=== PATIENT | female | born 1955 | race Caucasian/White ===

== ENCOUNTER 2023-06-03 16:19 | Inpatient (IN) | payer MEDICARE, OTHER ==
[~2023-06-03] VITALS: Ht 170.2 cm; Wt 91.2 kg
[~2023-06-03 16:19] MED LIST: ASPI-1169 PO; DULO60CA45 PO; INSU100V28 IJ; ROSU20TA2 PO; SITA100T PO
[2023-06-03] MEDS ORDERED: IV NS 0.9% 500 ML BAG IV ONE (16:30)
[2023-06-03] MEDS ORDERED: LEVO100T9 PO (17:04)
[2023-06-03] MEDS ORDERED: FURO-144 PO (17:04)
[2023-06-03] MEDS ORDERED: BLOO-668 IN (17:04)
[2023-06-03] MEDS ORDERED: FERR325T23 PO (17:04)
[2023-06-03] MEDS ORDERED: SEVE800T8 PO (17:04)
[2023-06-03] MEDS ORDERED: ATOR20TA PO (17:04)
[2023-06-03] MEDS ORDERED: INSU100I30 SQ (17:04)
[2023-06-03] MEDS ORDERED: CARV25TA2 PO (17:04)
[2023-06-03] MEDS ORDERED: NIFE30TA91 PO (17:04)
[2023-06-03 17:33] LABS: BASOPHILS % (AUTO) 1.2 % (0.0-2.0); EOSINOPHILS # (AUTO) 0.1 K/uL (0.0-0.7); EOSINOPHILS % (AUTO) 1.7 % (0.0-6.0); HEMATOCRIT 34 % (33-45); HEMOGLOBIN 10.4 g/dL (11.5-14.8); LYMPHOCYTES # (AUTO) 1.1 K/uL (0.8-4.8); LYMPHOCYTES % (AUTO) 30.7 % (20.0-44.0); MEAN CORPUSCULAR HEMOGLOBIN 28 PG (26.0-33.0); MEAN CORPUSCULAR HGB CONC 30 g/dl (31.0-36.0); MEAN CORPUSCULAR VOLUME 94 fL (82-100); MONOCYTES # (AUTO) 0.3 K/uL (0.1-1.30); MONOCYTES % (AUTO) 8.5 % (2.0-12.0); NEUTROPHILS % (AUTO) 57.9 % (43.0-81.0); PLATELET COUNT (AUTO) 137 K/uL (150-450); RED BLOOD CELL COUNT(AUTO) 3.67 MIL/uL (4.0-5.2); RED CELL DISTRIBUTION WIDTH 17.5 % (11.5-15.0); WHITE BLOOD COUNT (AUTO) 3.4 K/uL (4.3-11.0)
[2023-06-03 17:40] LABS: CALCIUM, SERUM 6.4 mg/dL (8.5-10.1); POTASSIUM 5.1 mmol/L (3.5-5.1)
[2023-06-03 17:47] LABS: BILIRUBIN,DIRECT 0.1 mg/dL (0.0-0.2); BILIRUBIN,TOTAL 0.4 mg/dL (0.2-1.0); TOTAL PROTEIN, SERUM 6.5 g/dL (6.4-8.2)
[2023-06-03 17:49] LABS: CREATININE 15.9 mg/dL (0.6-1.3)
[2023-06-03] MEDS ORDERED: DICYCLOMINE HCL INJ 20 MG/2 ML AMPUL IM ONE ×2 (18:00→18:13)
[2023-06-03 19:13] LABS: ANISOCYTOSIS 1+; BAND % (MANUAL) 1 % (0.0-5.0); EOSINOPHILS % (MANUAL) 4 % (0-4); LYMPHOCYTES % (MANUAL) 27 % (16-48); MONOCYTES % (MANUAL) 4 % (0-11.0); NEUTROPHILS % (MANUAL) 64 (42-76); PLATELET ESTIMATE DECREASED
[2023-06-03 20:41] LABS: APPEARANCE,URINE CLOUDY (CLEAR); BILIRUBIN,URINE NEGATIVE (NEGATIVE); BLOOD, URINE 2+ Ery/uL (NEGATIVE); COLOR,URINE YELLOW (YELLOW); KETONES,URINE TRACE mg/dL (NEGATIVE); LEUKOCYTE ESTERASE ,URINE 3+ (NEGATIVE); NITRITE, URINE NEGATIVE (NEGATIVE); PH,URINE 5.5 (5.0-8.0); PROTEIN,URINE 2+ mg/dl (NEGATIVE); UGLUCOSE NEGATIVE (NEGATIVE); UROBILINOGEN,URINE 0.2 EU/dL (0.2)
[2023-06-03 20:45] LABS: ADD URINE CULTURE YES; BACTERIA,URINE 3+ /HPF (None Seen); RBC,URINE 21-50 /HPF (0-2); WBC,URINE 51-80 /HPF (0-3)
[2023-06-03] MEDS ORDERED: MAG HYDROX/AL HYDROX/SIMETH 30 ML UDC PO PRN (22:00)
[2023-06-03] MEDS ORDERED: ACETAMINOPHEN 325 MG TABLET PO PRN (22:00)
[2023-06-03] MEDS ORDERED: MAGNESIUM HYDROXIDE 30 ML UDC PO PRN (22:00)
[2023-06-03] MEDS ORDERED: Calcium Gluconate 1GM/10ML 4.65 MEQ in IV NS 0.9% 100 ML IV ONE (22:00)
[2023-06-03] MEDS ORDERED: ONDANSETRON HCL/PF 4 MG/2 ML VIAL IVP PRN (22:00)
[2023-06-03] MEDS ORDERED: ZOLPIDEM TARTRATE 5 MG TABLET PO PRN (22:00)
[2023-06-03] MEDS ORDERED: Z GUARD REMEDY 4 OZ OINT TP PRN (22:00)
[2023-06-03] MEDS ORDERED: PIPERCILLIN/TAZOBACTAM 2.25GM/D5W 50MLPB IV ONE (22:45)
[2023-06-03] MEDS: ZOSYN IVPB 2.25 G in IV D5W 50ml IV ONE ×2 (22:53→23:11)
[2023-06-04] VITALS: BP 122/74; TEMP 97.7; O2SAT 99
[2023-06-04] MEDS ORDERED: KETOROLAC TROMETHAMINE INJ 30 MG/ML VIAL IV PRN (02:00)
[2023-06-04] MEDS ORDERED: DEXTROSE 50%-WATER 50 ML DISP.SYRIN IV PRN (03:30)
[2023-06-04 04:00] VITALS: BP 122/76; TEMP 98.1; O2SAT 98
[2023-06-04] MEDS ORDERED: ZOSYN IVPB 2.25 G in IV D5W 50ml IV SCH (06:00)
[2023-06-04] MEDS ORDERED: BLOOD SUGAR DIAGNOSTIC 1 EACH STRIP IN SCH (06:00)
[2023-06-04] MEDS: BLOOD SUGAR DIAGNOSTIC 1 EACH STRIP IN SCH ×3 (06:05→17:00)
[2023-06-04] MEDS: INSULIN REGULAR, HUMAN 100 UNIT/ML 3 ML VIAL SQ PRN ×2 (06:07→11:35)
[2023-06-04 06:57] LABS: BASOPHILS % (AUTO) 0.3 % (0.0-2.0); EOSINOPHILS # (AUTO) 0.1 K/uL (0.0-0.7); EOSINOPHILS % (AUTO) 1.5 % (0.0-6.0); HEMATOCRIT 33 % (33-45); HEMOGLOBIN 10.3 g/dL (11.5-14.8); LYMPHOCYTES % (AUTO) 29.7 % (20.0-44.0); MEAN CORPUSCULAR HEMOGLOBIN 29 PG (26.0-33.0); MEAN CORPUSCULAR HGB CONC 32 g/dl (31.0-36.0); MEAN CORPUSCULAR VOLUME 92 fL (82-100); MONOCYTES # (AUTO) 0.3 K/uL (0.1-1.30); MONOCYTES % (AUTO) 7.8 % (2.0-12.0); NEUTROPHILS # (AUTO) 2.1 K/uL (1.8-8.9); NEUTROPHILS % (AUTO) 60.7 % (43.0-81.0); PLATELET COUNT (AUTO) 119 K/uL (150-450); RED BLOOD CELL COUNT(AUTO) 3.54 MIL/uL (4.0-5.2); RED CELL DISTRIBUTION WIDTH 17.2 % (11.5-15.0); WHITE BLOOD COUNT (AUTO) 3.5 K/uL (4.3-11.0)
[2023-06-04 07:22] LABS: CALCIUM, SERUM 6.2 mg/dL (8.5-10.1); MAGNESIUM 2.5 mg/dL (1.8-2.4); PHOSPHORUS 7.8 mg/dL (2.5-4.9); POTASSIUM 4.9 mmol/L (3.5-5.1)
[2023-06-04 07:25] LABS: CREATININE 15.9 mg/dL (0.6-1.3)
[2023-06-04] MEDS: LEVOTHYROXINE SODIUM 100 MCG TABLET PO SCH (07:30)
[2023-06-04] MEDS: PANTOPRAZOLE 40 MG TABLET.DR PO SCH (07:30)
[2023-06-04 08:00] VITALS: BP 106/46; TEMP 97.6; O2SAT 99
[2023-06-04] MEDS: SEVELAMER CARBONATE 800 MG TABLET PO SCH ×3 (08:00→17:01)
[2023-06-04] MEDS: INSULIN GLARGINE, 100 UNIT/ML CARTRIDGE SQ SCH ×2 (08:58→21:43)
[2023-06-04] MEDS: NIFEdipine XL (30MG) 30 MG TAB PO SCH (09:00)
[2023-06-04] MEDS: FERROUS SULFATE (325 MG) 325 MG/TAB TABLET PO SCH ×2 (09:00→16:06)
[2023-06-04] MEDS: CARVEDILOL 12.5 MG TABLET PO SCH ×3 (09:00→16:06)
[2023-06-04] MEDS: HEPARIN SODIUM, PORCINE 5000 UNITS/1 ML VIAL SQ SCH ×2 (09:51→21:04)
[2023-06-04 12:00] VITALS: BP 126/51; TEMP 97.6; O2SAT 99
[2023-06-04] MEDS ORDERED: TRAMADOL HCL 50 MG TABLET PO PRN (12:30)
[2023-06-04] MEDS: PIPERACILLIN /TAZOBACTAM 2.25 G in IV D5W 50 ML IV SCH ×2 (12:36→21:02)
[2023-06-04] MEDS ORDERED: ACIDOPHILUS/BULGARICUS 1 EACH GRAN.PACK PO SCH (13:00)
[2023-06-04] MEDS: ACIDOPHILUS/BULGARICUS 1 EACH TAB.CHEW PO SCH ×2 (15:23→16:06)
[2023-06-04 16:00] VITALS: BP 103/80; TEMP 97.8; O2SAT 98
[2023-06-04] MEDS ORDERED: ACIDOPHILUS/BULGARICUS 1 EACH TAB.CHEW PO SCH (17:00)
[2023-06-04] MEDS ORDERED: HEPARIN SODIUM, PORCINE 5000 UNITS/1 ML VIAL SQ SCH (17:00)
[2023-06-04] MEDS ORDERED: HYDROCORTISONE ACETATE 25 MG/SUPP.RECT SUPP.RECT RC PRN (19:00)
[2023-06-04 20:00] VITALS: BP 108/60; TEMP 98.8; O2SAT 96
[2023-06-04] MEDS: ATORVASTATIN 10 MG TABLET PO SCH (21:48)
[2023-06-05] VITALS: BP 112/51; TEMP 99; O2SAT 96
[2023-06-05] MEDS: INSULIN REGULAR, HUMAN 100 UNIT/ML 3 ML VIAL SQ PRN ×3 (00:12→11:12)
[2023-06-05] MEDS: BLOOD SUGAR DIAGNOSTIC 1 EACH STRIP IN SCH ×4 (00:13→17:37)
[2023-06-05] MEDS ORDERED: Calcium Gluconate 0.465 MEQ/ML VIAL IV ONE (00:47)
[2023-06-05 04:00] VITALS: BP 123/51; TEMP 99; O2SAT 96
[2023-06-05] MEDS: PIPERACILLIN /TAZOBACTAM 2.25 G in IV D5W 50 ML IV SCH ×3 (04:18→21:21)
[2023-06-05 06:25] LABS: BASOPHILS % (AUTO) 0.2 % (0.0-2.0); EOSINOPHILS % (AUTO) 0.7 % (0.0-6.0); HEMATOCRIT 32 % (33-45); HEMOGLOBIN 10.1 g/dL (11.5-14.8); LYMPHOCYTES # (AUTO) 1.3 K/uL (0.8-4.8); MEAN CORPUSCULAR HEMOGLOBIN 30 PG (26.0-33.0); MEAN CORPUSCULAR HGB CONC 32 g/dl (31.0-36.0); MEAN CORPUSCULAR VOLUME 92 fL (82-100); MONOCYTES # (AUTO) 0.6 K/uL (0.1-1.30); MONOCYTES % (AUTO) 8.8 % (2.0-12.0); NEUTROPHILS % (AUTO) 71.3 % (43.0-81.0); PLATELET COUNT (AUTO) 129 K/uL (150-450); RED BLOOD CELL COUNT(AUTO) 3.43 MIL/uL (4.0-5.2)
[2023-06-05 06:42] LABS: CALCIUM, SERUM 6.7 mg/dL (8.5-10.1); POTASSIUM 4.9 mmol/L (3.5-5.1)
[2023-06-05] MEDS: SEVELAMER CARBONATE 800 MG TABLET PO SCH ×3 (07:52→17:11)
[2023-06-05] MEDS: PANTOPRAZOLE 40 MG TABLET.DR PO SCH (07:52)
[2023-06-05] MEDS: LEVOTHYROXINE SODIUM 100 MCG TABLET PO SCH (07:55)
[2023-06-05 08:00] VITALS: BP 132/73; TEMP 98.3; O2SAT 96
[2023-06-05] MEDS: CARVEDILOL 12.5 MG TABLET PO SCH ×3 (08:51→16:06)
[2023-06-05] MEDS: ACIDOPHILUS/BULGARICUS 1 EACH TAB.CHEW PO SCH ×3 (08:51→16:06)
[2023-06-05] MEDS: FERROUS SULFATE (325 MG) 325 MG/TAB TABLET PO SCH ×2 (08:52→16:06)
[2023-06-05] MEDS: NIFEdipine XL (30MG) 30 MG TAB PO SCH (08:52)
[2023-06-05] MEDS: HEPARIN SODIUM, PORCINE 5000 UNITS/1 ML VIAL SQ SCH ×2 (08:54→21:35)
[2023-06-05] MEDS: INSULIN GLARGINE, 100 UNIT/ML CARTRIDGE SQ SCH ×2 (08:55→21:35)
[2023-06-05 12:00] VITALS: BP 124/58; TEMP 99.9; O2SAT 96
[2023-06-05 16:00] VITALS: BP 96/57; TEMP 99.7; O2SAT 96
[2023-06-05 20:00] VITALS: BP 135/42; TEMP 97.5; O2SAT 96
[2023-06-05] MEDS: ATORVASTATIN 10 MG TABLET PO SCH (21:22)
[2023-06-06] MEDS: BLOOD SUGAR DIAGNOSTIC 1 EACH STRIP IN SCH ×4 (00:03→17:29)
[2023-06-06] MEDS: INSULIN REGULAR, HUMAN 100 UNIT/ML 3 ML VIAL SQ PRN ×3 (00:04→13:09)
[2023-06-06 04:00] VITALS: BP 138/48; TEMP 97.8; O2SAT 95
[2023-06-06] MEDS: PIPERACILLIN /TAZOBACTAM 2.25 G in IV D5W 50 ML IV SCH ×2 (05:39→13:03)
[2023-06-06 06:51] LABS: BASOPHILS % (AUTO) 0.3 % (0.0-2.0); EOSINOPHILS % (AUTO) 0.3 % (0.0-6.0); HEMATOCRIT 35 % (33-45); HEMOGLOBIN 10.7 g/dL (11.5-14.8); LYMPHOCYTES # (AUTO) 0.8 K/uL (0.8-4.8); LYMPHOCYTES % (AUTO) 22.9 % (20.0-44.0); MEAN CORPUSCULAR HEMOGLOBIN 29 PG (26.0-33.0); MEAN CORPUSCULAR HGB CONC 31 g/dl (31.0-36.0); MEAN CORPUSCULAR VOLUME 93 fL (82-100); MONOCYTES # (AUTO) 0.3 K/uL (0.1-1.30); MONOCYTES % (AUTO) 9.7 % (2.0-12.0); NEUTROPHILS # (AUTO) 2.2 K/uL (1.8-8.9); NEUTROPHILS % (AUTO) 66.8 % (43.0-81.0); PLATELET COUNT (AUTO) 109 K/uL (150-450); RED BLOOD CELL COUNT(AUTO) 3.72 MIL/uL (4.0-5.2); RED CELL DISTRIBUTION WIDTH 17.4 % (11.5-15.0); WHITE BLOOD COUNT (AUTO) 3.3 K/uL (4.3-11.0)
[2023-06-06 07:29] LABS: CALCIUM, SERUM 6.9 mg/dL (8.5-10.1); POTASSIUM 4.5 mmol/L (3.5-5.1)
[2023-06-06 07:31] LABS: CREATININE 16.9 mg/dL (0.6-1.3)
[2023-06-06 08:00] VITALS: BP 102/50; TEMP 98.5; O2SAT 100
[2023-06-06] MEDS: PANTOPRAZOLE 40 MG TABLET.DR PO SCH (08:18)
[2023-06-06] MEDS: LEVOTHYROXINE SODIUM 100 MCG TABLET PO SCH (08:18)
[2023-06-06 08:28] LABS: CHOLESTEROL 109 mg/dL (<200); HDL CHOLESTEROL 42 mg/dL (40-60); LDL 44 mg/dL (0-99); TRIGLYCERIDES 152 mg/dL (30-150)
[2023-06-06] MEDS: FERROUS SULFATE (325 MG) 325 MG/TAB TABLET PO SCH ×2 (08:46→16:06)
[2023-06-06] MEDS: SEVELAMER CARBONATE 800 MG TABLET PO SCH ×3 (08:46→17:01)
[2023-06-06] MEDS: ACIDOPHILUS/BULGARICUS 1 EACH TAB.CHEW PO SCH ×3 (08:47→16:07)
[2023-06-06] MEDS: CARVEDILOL 12.5 MG TABLET PO SCH ×3 (08:49→16:06)
[2023-06-06] MEDS: NIFEdipine XL (30MG) 30 MG TAB PO SCH (08:50)
[2023-06-06] MEDS: INSULIN GLARGINE, 100 UNIT/ML CARTRIDGE SQ SCH (09:01)
[2023-06-06] MEDS: HEPARIN SODIUM, PORCINE 5000 UNITS/1 ML VIAL SQ SCH (09:01)
[2023-06-06] MEDS ORDERED: CEPH500C2 PO (10:17)
[2023-06-06 12:00] VITALS: BP 110/63; TEMP 98.6; O2SAT 100
[2023-06-06 16:00] VITALS: BP 127/63; TEMP 98.2; O2SAT 98
[2023-06-06 16:06] VITALS: BP 127/63
== END 2023-06-06 18:25 | disposition home or self-care (01) | DRG 177 ==
LOC: ER 16:23 → MEDSG1 20:32 → TELE1 06-04 00:03 → MEDSG1 06-05 15:01
PROVIDERS: ADMIT Student in an Organized Health Care Education/Training Program; ATTEND Nurse Practitioner Acute Care
DX: U07.1 COVID-19 (principal); K85.90 Acute pancreatitis without necrosis or infection, unspecified; N18.6 End stage renal disease; N39.0 Urinary tract infection, site not specified; E44.0 Moderate protein-calorie malnutrition; I50.9 Heart failure, unspecified; Z87.19 Personal history of other diseases of the digestive system; E10.22 Type 1 diabetes mellitus with diabetic chronic kidney disease; Z88.1 Allergy status to other antibiotic agents; Z88.5 Allergy status to narcotic agent; Z88.8 Allergy status to other drugs, medicaments and biological substances; Z79.4 Long term (current) use of insulin; Z79.899 Other long term (current) drug therapy; Z76.82 Awaiting organ transplant status; Z78.9 Other specified health status; Z99.2 Dependence on renal dialysis; Z87.891 Personal history of nicotine dependence; Z79.3 Long term (current) use of hormonal contraceptives; B96.89 Other specified bacterial agents as the cause of diseases classified elsewhere; D64.9 Anemia, unspecified; D69.6 Thrombocytopenia, unspecified; E03.9 Hypothyroidism, unspecified; E66.9 Obesity, unspecified; Z68.31 Body mass index [BMI] 31.0-31.9, adult; E78.5 Hyperlipidemia, unspecified; G47.33 Obstructive sleep apnea (adult) (pediatric)
CPT/HCPCS: 36415; 71045-TC; 80048-TC; 80061-TC; 80076-TC; 81001; 82962-TC; 83690-TC; 83735-TC; 84100-TC; 85025-TC; 85378-TC; 86140-TC; 87086-TC; A4223; C9803; G0378; J0500; J0610; J1644; J1815; J2543; J7030; J7040; J7050; J7060